=== PATIENT | male | born 1995 | race Caucasian/White ===

== ENCOUNTER 2018-08-17 18:03 | Emergency (ER) | payer OTHER ==
[2018-08-17] MEDS ORDERED: MORPHINE 2 MG/ML CARPUJECT IVP STA ×2 (18:24→19:54)
--- NOTE | 2018-08-17 18:26 | ED Physician Documentation ---
PD HPI HEADACHE - Stated complaint Stated Complaint: NECK/THROAT PX - Chief complaint Chief Complaint: Heent - History obtained from History obtained from: Patient - History of Present Illness Timing - onset: Other (This is a previously healthy gentleman with history of Gilbert syndrome has had on and off left-sided sore throat and ear pain on the left for the last couple of weeks but today acutely while cooking developed posterior neck pain that is worse with rotation and flexion.) Review of Systems Constitutional: denies: Fever, Chills Ears: reports: Ear pain Nose: denies: Rhinorrhea / runny nose, Congestion Throat: reports: Sore throat Cardiac: denies: Chest pain / pressure, Palpitations Respiratory: denies: Dyspnea, Cough PD PAST MEDICAL HISTORY - Present Medications Home Medications: Ambulatory Orders Medication Instructions Recorded Confirmed Ibuprofen [Motrin] 800 mg PO Q8H PRN #30 tablet 08/17/18 Oxycodone HCl/Acetaminophen 1 - 2 each PO Q6H PRN #7 tablet 08/17/18 [Percocet 5-325 mg Tablet] Penicillin V Potassium 500 mg PO Q6HR #40 tablet 08/17/18 - Allergies Allergies/Adverse Reactions: Allergies Allergy/AdvReac Type Severity Reaction Status Date / Time No Known Drug Allergies Allergy Verified 08/17/18 18:12 PD ED PE NORMAL - Vitals Vital signs reviewed: Yes - General General: Alert and oriented X 3, No acute distress - HEENT HEENT: PERRL, EOMI, Ears normal, Other (Left tonsillar large with mild exudate,) - Neck Neck: Other (He has as much pain with rotation as he does with flexion and extension of the neck. There is no adenopathy. No muscular tenderness of the neck.) - Cardiac Cardiac: RRR, No murmur - Respiratory Respiratory: No respiratory distress, Clear bilaterally - Abdomen Abdomen: Non tender - Back Back: No CVA TTP, No spinal TTP - Derm Derm: Normal color, Warm and dry - Extremities Extremities: No edema, No calf tenderness / cord - Neuro Neuro: Alert and oriented X 3, Normal speech Results - Vitals Vitals: Vital Signs - 24 hr 08/17/18 18:10 Temperature 36.5 C Heart Rate 55 L Respiratory 16 Rate Blood Pressure 175/73 H O2 Saturation 98 Oxygen O2 Source Room air - Labs Labs: Laboratory Tests 08/17/18 08/17/18 08/17/18 18:30 18:30 18:50 WBC 4.7 L RBC 4.79 Hgb 14.2 Hct 42.1 MCV 87.9 MCH 29.6 MCHC 33.7 RDW 13.0 Plt Count 213 MPV 9.6 Neut # (Auto) 2.3 Lymph # (Auto) 1.9 [place] # (Auto) 0.4 Eos # (Auto) 0.1 Baso # (Auto) 0.0 Absolute Nucleated RBC 0.00 Nucleated RBC % 0.0 Sodium 138 Potassium 3.9 Chloride 101 Carbon Dioxide 28 Anion Gap 9.0 BUN 24 H Creatinine 1.1 Estimated GFR (MDRD) 82 L Glucose 88 Calcium 8.5 Group A Strep Rapid POSITIVE H - Rads (name of study) CTA Head and neck Radiology: EMP read contemporaneously (NAD, hypoplastic L vert) PD MEDICAL DECISION MAKING - ED course ED course: 23-year-old gentleman with sore throat for several weeks but now some atypical neck pain that does not seem muscular. Differential diagnosis includes dissection and therefore advanced imaging was done without any evidence of same. He is treated for positive strep. Departure - Departure Disposition: Home, Self Care Clinical Impression: Strep throat, Neck pain, Headache, occipital Condition: Good Record reviewed to determine appropriate education?: Yes Instructions: ED Strep Pharyngitis Conf Prescriptions: Penicillin V Potassium 500 mg PO Q6HR #40 tablet Ibuprofen [Motrin] 800 mg PO Q8H PRN #30 tablet PRN Reason: PAIN &/OR FEVER Oxycodone HCl/Acetaminophen [Percocet 5-325 mg Tablet] 1 - 2 each PO Q6H PRN #7 tablet PRN Reason: pain Comments: Call your doctor to arrange a follow-up appointment, make the next available appointment. In the interim, return anytime if worse or if new symptoms develop. Your blood pressure was elevated today on check into the emergency department. This does not mean that you have hypertension, it is a common phenomenon to come to the emergency department and have elevated blood pressure. I recommend that you see your primary care physician within the week to have it rechecked when you are feeling better. Forms: Activity restrictions
[2018-08-17] MEDS ORDERED: HYDROcod/ACETAM 5/325 MG TABLET PO STA (18:39)
[2018-08-17 18:42] LABS: BASOPHILS % (AUTO) 0.9 %; EOSINOPHILS # (AUTO) 0.1 10^3/uL (0.0-0.7); EOSINOPHILS % (AUTO) 1.8 %; HGB - HEMOGLOBIN 14.2 g/dL (14.0-18.0); LYMPHOCYTES # (AUTO) 1.9 10^3/uL (1.5-3.5); LYMPHOCYTES % (AUTO) 40.3 %; MEAN CORPUSCULAR HEMOGLOBIN 29.6 pg (27.0-31.0); MEAN CORPUSCULAR HGB CONC 33.7 g/dL (32.0-36.0); MEAN CORPUSCULAR VOLUME 87.9 fL (80.0-94.0); MEAN PLATELET VOLUME 9.6 fL (7.4-11.4); MONOCYTES # (AUTO) 0.4 10^3/uL (0.0-1.0); MONOCYTES % (AUTO) 8.1 %; NEUTROPHILS # (AUTO) 2.3 10^3/uL (1.5-6.6); NEUTROPHILS % (AUTO) 48.9 %; PLT - PLATELET COUNT 213 10^3/uL (130-450); RED BLOOD COUNT 4.79 10^6/uL (4.70-6.10); WHITE BLOOD COUNT 4.7 x10^3/uL (4.8-10.8)
[2018-08-17 18:45] LABS: CALCIUM 8.5 mg/dL (8.5-10.3); CREATININE 1.1 mg/dL (0.6-1.2)
[2018-08-17] MEDS ORDERED: IOVERSOL 320 100 ML VIAL IVP ONE ×2 (19:16→20:16)
--- NOTE | 2018-08-17 20:52 | CT Report ---
Reason: posterior heache, neck pain, ?dissection Procedure Date: 08/17/2018 Accession Number: [id number] / [id number] Procedure: CT - Neck Angio CPT Code: FULL RESULT: EXAM: CT ANGIOGRAM HEAD AND NECK. CT SCAN HEAD WITHOUT AND WITH CONTRAST. EXAM DATE:08/17/2018 08:28 PM. CLINICAL HISTORY:23-year-old with posterior headache and neck pain. Evaluate for intracranial pathology or vascular pathology. COMPARISON:None. TECHNIQUE: Routine axial helical CTA imaging was performed from the aortic arch through the [place]. Routine axial CT imaging of the head was performed prior to and following contrast administration. Reconstructions: Routine multiplanar 3D MIP reconstructions. IV contrast: Optiray-320 80 mL. NASCET Criteria are used for stenosis measurements. In accordance with CT protocol optimization, one or more of the following dose reduction techniques were utilized for this exam: automated exposure control, adjustment of mA and/or KV based on patient size, or use of iterative reconstructive technique. FINDINGS: CT SCAN HEAD: Parenchyma: No intraparenchymal hemorrhage. No evidence of mass, midline shift, or CT findings of acute infarction. Peña-white differentiation is distinct. Extraaxial Spaces: Normal for age. No subdural or epidural collections identified. Ventricles: Normal in size and position. Sinuses and Orbits: Imaged paranasal sinuses, orbits, and mastoids show no significant abnormality. Bones: No evidence of fracture or calvarial defect. CT ANGIOGRAM HEAD AND NECK: The aortic arch appears normal. Normal three-vessel takeoff of the great vessels. RIGHT: Common Carotid Artery: Patent without significant stenosis. Carotid Bulb: There is no significant atherosclerotic plaque at the bifurcation and siphon. Stenosis at the bifurcation by NASCET criteria: No significant stenosis. Internal Carotid Artery: No evidence of dissection. No evidence of aneurysm along the intracranial ICA. External Carotid Artery: Unremarkable. Vertebral Artery: Patent without significant stenosis. No evidence of dissection. No aneurysm. Anterior Cerebral Artery: Patent without significant stenosis, aneurysm, or vascular malformation. Middle Cerebral Artery: Patent without significant stenosis, aneurysm, or vascular malformation. Posterior Cerebral Artery: Patent without significant stenosis, aneurysm, or vascular malformation. Posterior Communicating Artery: Patent. No aneurysm. LEFT: Common Carotid Artery: Patent without significant stenosis. Carotid Bulb: There is no significant atherosclerotic plaque at the bifurcation and siphon. Stenosis at the bifurcation by NASCET criteria: No significant stenosis. Internal Carotid Artery: No evidence of dissection. No evidence of aneurysm along the intracranial ICA. External Carotid Artery: Unremarkable. 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 No evidence of dissection. No aneurysm. Anterior Cerebral Artery: Patent without significant stenosis, aneurysm, or vascular malformation. Middle Cerebral Artery: Patent without significant stenosis, aneurysm, or vascular malformation. Posterior Cerebral Artery: Patent without significant stenosis, aneurysm, or vascular malformation. Posterior Communicating Artery: Patent. No aneurysm. CENTRAL: Anterior Communicating Artery: Patent. No aneurysm. Basilar Artery: Patent without significant stenosis. No aneurysm. DURAL VENOUS SINUSES AND MAJOR CENTRAL VEINS: Patent. OTHER: The visualized pharynx and larynx appear normal. Major salivary glands appear normal. Thyroid gland appears normal. No cervical lymphadenopathy or necrotic lymph nodes seen. Soft tissues of the neck appear normal. Visualized lung apices are clear. No acute fracture or traumatic subluxation of the cervical spine. There is a sclerotic lesion seen within the posterior element of the T2 vertebral body measuring up to 7 mm that may represent fibrous dysplasia. No other suspicious osseous lesion seen. POST-CONTRAST HEAD: No abnormal enhancement. IMPRESSION: CT SCAN HEAD: 1. No definite acute intracranial pathology seen; specifically, no acute infarct, acute intracranial hemorrhage, mass, hydrocephalus, or midline shift. No abnormal postcontrast enhancement. CT ANGIOGRAM NECK: 1. 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 2. Otherwise the vasculature of the neck appears normal without evident dissection or stenosis seen. CT ANGIOGRAM HEAD: 1. No large vessel occlusion. 2. No aneurysm. No significant stenosis. RADIA
[2018-08-17] MEDS ORDERED: oxyCODONE/ACET 5/325 Prepack 4 PO STA (21:04)
[2018-08-17] MEDS ORDERED: cefTRIAXone 1 GM in SODIUM CHLORIDE 0.9% MINIBAG 100 ML IV STA (21:04)
[2018-08-17] MEDS ORDERED: DEXAMETHASONE 10 MG/ML VIAL IVP STA (21:04)
[2018-08-17 21:38] VITALS: BP 124/51
== END 2018-08-17 21:57 | disposition home or self-care (01) ==
LOC: ED 18:03
DX: J02.0 Streptococcal pharyngitis (principal); M54.2 Cervicalgia; R51 Headache; R03.0 Elevated blood-pressure reading, without diagnosis of hypertension; E80.4 Gilbert syndrome
CPT/HCPCS: 36415; 70496; 70498; 80048; 85025; 87430; 96365; 96375; 99283; 99284; A9270; Q9967

== ENCOUNTER 2020-03-22 14:16 | Emergency (ER) | payer OTHER ==
[2020-03-22] MEDS ORDERED: HYDROmorphone 1 MG/ML CARPUJECT IM STA (14:51)
[2020-03-22] MEDS ORDERED: CYCLOBENZAPRINE 10 MG TABLET PO STA (14:51)
--- NOTE | 2020-03-22 15:02 | ED Physician Documentation ---
PD HPI BACK PAIN - Stated complaint Stated Complaint: BACK PX - Chief complaint Chief Complaint: Back Pain - History obtained from History obtained from: Patient - History of Present Illness Timing - onset: Today Timing - duration: Days (1) Timing - details: Abrupt onset Pain level max: 8 Pain level now: 8 Location: Mid, Lower, Left Quality: Pain, Spasm Associated symptoms: No: Fever, Weakness, Numbness, Incontinent of urine, Unable to urinate, Hematuria, Incontinent of stool Improves with: Rest Worsened by: Movement Contributing factors: No: Lifting, Twisting, Trauma, Anticoagulated, Cancer, IVDA, Out of meds Similar symptoms before: Has not had sx before Recently seen: Not recently seen - Additional information Additional information: Was bending over at work when he felt his back spasm. Tried to stand up and could not. Took Motrin without relief. Review of Systems Constitutional: denies: Fever, Chills Respiratory: denies: Cough GI: denies: Nausea, Vomiting, Diarrhea : denies: Dysuria, Frequency, Hesitancy, Incontinent Skin: denies: Rash Musculoskeletal: denies: Neck pain Neurologic: denies: Focal weakness, Numbness PD PAST MEDICAL HISTORY - Past Medical History Past Medical History: No - Past Surgical History Past Surgical History: No - Present Medications Home Medications: Ambulatory Orders Medication Instructions Recorded Confirmed Ibuprofen [Motrin] 800 mg PO Q8H PRN #30 tablet 08/17/18 Oxycodone HCl/Acetaminophen 1 - 2 each PO Q6H PRN #7 tablet 08/17/18 [Percocet 5-325 mg Tablet] Penicillin V Potassium 500 mg PO Q6HR #40 tablet 08/17/18 Cyclobenzaprine [Flexeril] 10 mg PO TID PRN #20 tablet 03/22/20 Meloxicam [Mobic] 15 mg PO DAILY PRN #20 tablet 03/22/20 - Allergies Allergies/Adverse Reactions: Allergies Allergy/AdvReac Type Severity Reaction Status Date / Time No Known Drug Allergies Allergy Verified 03/22/20 14:29 - Social History Does the pt smoke?: No Smoking Status: Never smoker Does the pt drink ETOH?: No Does the pt have substance abuse?: No - Immunizations Immunizations are current?: Yes PD ED PE NORMAL - Vitals Vital signs reviewed: Yes - General General: Alert and oriented X 3, No acute distress - HEENT HEENT: Moist mucous membranes - Neck Neck: Supple, no meningeal sign - Cardiac Cardiac: RRR - Respiratory Respiratory: No respiratory distress, Clear bilaterally - Abdomen Abdomen: Soft, Non tender, Non distended - Back Back: No spinal TTP (No step-off or deformity. No midline tenderness to palpation. Paraspinal spasm left low thoracic upper lumbar.), Other (Normal bilateral lower extremity patellar and ankle jerk reflexes. Normal great toe extension bilaterally. no saddle anesthesia) - Derm Derm: Warm and dry - Extremities Extremities: No edema, No calf tenderness / cord - Neuro Neuro: Alert and oriented X 3, No motor deficit, No sensory deficit - Psych Psych: Normal mood, Normal affect Results - Vitals Vitals: Vital Signs - 24 hr 03/22/20 14:25 Temperature 37 C Heart Rate 95 Respiratory 20 Rate Blood Pressure 145/84 H O2 Saturation 98 Oxygen O2 Source Room air PD MEDICAL DECISION MAKING - ED course Complexity details: considered differential (No cauda equina, no spinal epidural abscess, no fracture, no aortic dissection or evidence of aneursym rupture), d/w patient ED course: Patient with atraumatic back spasm. Given Flexeril here. Will place on meloxicam and Flexeril for home. Patient is well-appearing, nontoxic. Afebrile. No evidence of fracture, cauda equina, epidural abscess. Patient counseled regarding signs and symptoms for which I believe and urgent re- evaluation would be necessary. Patient with good understanding of and agreement to plan and is comfortable going home at this time This document was made in part using voice recognition software. While efforts are made to proofread this document, sound alike and grammatical errors may occur. Departure - Departure Disposition: 01 Home, Self Care Clinical Impression: Back spasm Condition: Good Instructions: ED Spasm Back No Trauma Follow-Up: LUIS MIGUEL ZIMMERMAN DO [Primary Care Provider] - Within 1 week Prescriptions: Cyclobenzaprine [Flexeril] 10 mg PO TID PRN #20 tablet PRN Reason: Spasms Meloxicam [Mobic] 15 mg PO DAILY PRN #20 tablet PRN Reason: pain Comments: Use the medications as prescribed. Return if you worsen. Continue to gently stretch her back at home. Do not drive or operate heavy machinery while taking the Flexeril.
[2020-03-22 15:32] VITALS: BP 140/75
== END 2020-03-22 15:31 | disposition home or self-care (01) ==
LOC: ED 14:16
DX: M62.830 Muscle spasm of back (principal)
CPT/HCPCS: 99282; 99284; A9270